=== PATIENT | male | born 1990 | race Caucasian/White ===

== ENCOUNTER 2022-07-25 15:01 | Emergency (ER) | payer MEDICAID, SELFPAY ==
[2022-07-25 15:02] VITALS: PULSE 100; RESP 18; O2SAT 100
[2022-07-25 15:03] VITALS: BP 136/50; PULSE 95; RESP 28; TEMP 35.7; O2SAT 100; BMI 22.4
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
[2022-07-25] MEDS: HYDROmorphone 1 MG/ML Syringe IV (15:13)
[2022-07-25] MEDS: Ondansetron 4 MG/2 ML Vial IV (15:14)
[2022-07-25] MEDS: 0.9% Normal Saline 1,000 ML 1000 ML IV (15:16)
[2022-07-25 15:18] VITALS: BP 140/103; PULSE 96; RESP 28; O2SAT 100
[2022-07-25 15:33] LABS: Absolute Lymphocyte Count 2.79 X10^3/uL (0.83-4.51); Basophil# 0.08 X10^3/uL; Basophil% 0.9 % (0-1); Eosinophils% 1.1 % (0-5); Hematocrit 43.3 % (40-54); Lymphocyte # 2.79 X10^3/ul (0.83-4.51); Lymphocyte % 31.7 % (19-41); Mean Corp Hgb Conc 34.6 g/dL (32-36); Mean Corpuscular Hgb 29.5 pg (27.0-32.0); Mean Corpuscular Volume 85.1 fL (80-94); Monocyte# 0.76 X10^3/uL; Monocyte% 8.6 % (0-10); NRBC Flagged by Analyzer 0 % (0-5); Neutrophil # 4.96 X10^3/uL (2.7-7.7); Neutrophil % 56.3 % (47-70); Platelet Count 190 K/mm3 (150-450); RBC Distribution Width CV 13.9 % (11.6-14.6); RBC Distribution Width SD 43.4 fl (35.1-43.9); Red Blood Count 5.09 M/mm3 (4.6-6.2); White Blood Count 8.8 K/mm3 (4.4-11.0)
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
[2022-07-25 15:36] LABS: ALB/GLOB Ratio 1.1 RATIO (0.9-2.4); AST(SGOT) 43 U/L (15-37); Alanine Aminotransfer ALT/SGPT 46 U/L (16-61); Albumin, Serum 3.6 g/dL (3.2-5.0); Alkaline Phosphatase 70 U/L (45-117); Anion Gap 11 (5-15); BUN 14 mg/dL (7-18); BUN/Creat Ratio 12.4 RATIO (10-20); Calcium,Total 8.8 mg/dL (8.5-10.1); Chloride 108 mmol/L (98-107); Creatinine, Serum 1.13 mg/dL (0.70-1.30); EST Glomerular Filtration Rate 80 mL/min (>60); Est Glom Filt Rate - Afr Amer 96 mL/min (>60); Estimated Creatinine Clearance 108.05 ml/min; Globulin 3.4 g/dL (2.2-4.2); Glucose 124 mg/dL (74-106); Lipase 92 U/L (73-393); Potassium 2.8 mmol/L (3.5-5.1); Sodium Level 141 mmol/L (136-145); Troponin-I HS < 3 pg/mL (3.0-78.0)
[2022-07-25 15:45] LABS: International Normalized Ratio 1.2; Partial Thromboplast Time 27.5 Seconds (24.1-36.2); Prothrombin Time (Protime)PT. 14.4 SECONDS (11.7-14.9)
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
[2022-07-25 16:01] VITALS: BP 128/70; PULSE 69; RESP 16; O2SAT 100
--- NOTE | 2022-07-25 16:13 | NURSING ---
CALLED [facility], ETA IS 2 HRS
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
[2022-07-25 17:34] VITALS: BP 119/73; PULSE 90; RESP 18; TEMP -12.5; TEMP 9.5; O2SAT 100
== END 2022-07-25 17:35 | disposition short-term general hospital (02) ==
PROVIDERS: Emergency Provider Emergency Medicine; Visit Provider Emergency Medicine
DX: S01.01XA Laceration without foreign body of scalp, initial encounter (principal); S51.012A Laceration without foreign body of left elbow, initial encounter; M54.9 Dorsalgia, unspecified; R06.4 Hyperventilation; M25.571 Pain in right ankle and joints of right foot; V28.49XA Other motorcycle driver injured in noncollision transport accident in traffic accident, initial encounter; F17.210 Nicotine dependence, cigarettes, uncomplicated; Z79.899 Other long term (current) drug therapy
CPT/HCPCS: 70450; 71260; 72125; 73080; 73610; 74177; 80053; 82077; 83690; 84484; 85025; 85610; 85730; 96361; 96374; 96375; 99285; Q9967; J2405

== ENCOUNTER 2025-07-01 22:10 | Emergency (ER) | payer MEDICAID, SELFPAY ==
[2025-07-01 22:11] VITALS: BP 141/78; PULSE 111; RESP 20; TEMP 37; O2SAT 100; BMI 18.6
--- OUTSIDE RECORDS SUMMARY | 2025-07-01 22:32 | XMS RPT_ITS | CCD ---
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 Final --- Dictated: 07/25/2022 10:24 pm Dictating Physician: MD TIRADO SYED TAAHIR Signed Date and Time: 07/25/2022 10:45 pm Signed by: MD TIRADO SYED TAAHIR Transcribed Date and Time: 07/25/2022 10:25 [facility] Rex Tirado S - 07/25/2022 Patient Name: [facility]BERT[id number] Diagnostic Radiology ACCESSION EXAM DATE/TIME PROCEDURE ORDERING PROVIDER [id number] 07/25/2022 21:57 EDT CR Tibia/Fibula 2 Views [id number] -TURCIOS, Right MELITON CPT code 20938 Reason For Exam (CR Tibia/Fibula 2 Views Right) PAIN S/P INTERMEDIATE Report EXAMINATION: CR Ankle 3+ Views Bilateral, CR Knee 3 Views Right, CR Knee 3 Views Left, CR Foot Complete 3+ Views Bilateral, CR Tibia/Fibula 2 Views Right HISTORY: s/p INTERMEDIATE, both ttp and edematous. TECHNIQUE: CR Ankle 3+ Views Bilateral, CR Knee 3 Views Right, CR Knee 3 Views Left, CR Foot Complete 3+ Views Bilateral, CR Tibia/Fibula 2 Views Right COMPARISON: None available RESULT: Bilateral knees: No acute fracture or dislocation. Joint space are preserved. No effusions. No radiopaque foreign body. No soft tissue gas. Right tibia/fibula: No acute fractures or dislocations. No radiopaque foreign body. No soft tissue gas. Right ankle: Tiny ossific density displaced approximately 6 mm distal to the distal fibular tip suggesting a small avulsion fracture. There is surrounding soft tissue swelling. No other additional fractures. No dislocations. Ankle mortise is preserved. No radiopaque foreign body or soft tissue gas. Left ankle: No acute fracture or dislocation. Ankle mortise is preserved. No radiopaque foreign body or soft tissue gas. Right foot: Acute comminuted fractures of the 1st distal phalanx with surrounding swelling. Possible intra-articular fracture of the 3rd distal phalanx given lucency at the lateral aspect. No additional findings suspicious for other fractures. No dislocations. No radiopaque foreign body or soft tissue gas. Left foot: Minimally displaced oblique intra-articular fracture of the 5th digit proximal phalanx with surrounding soft tissue swelling. Possible cortical irregularity suggesting an additional nondisplaced acute oblique fracture of the 4th digit proximal phalanx. Otherwise no additional fractures. No radiopaque foreign body or soft tissue gas. IMPRESSION: Diagnostic Radiology Report Knees: No acute osseous abnormality Right tib-fib: No acute osseous abnormality Right ankle: Suggestion of a small avulsion fracture of the distal fibular tip. Correlate with point tenderness. No other acute fracture or dislocation. Left ankle: No acute osseous abnormality. Right foot: Acute comminuted fracture of the 1st distal phalanx. Additional possible intra-articular fracture of the 3rd distal phalanx. Correlate with point tenderness. Left foot: Minimally displaced oblique intra-articular fracture of the 5th digit proximal phalanx. Possible additional fracture of the 4th digit proximal phalanx. Correlate with point tenderness. Report Dictated on --- Final --- Dictated: 07/25/2022 10:24 pm Dictating Physician: MD TIRADO SYED TAAHIR Signed Date and Time: 07/25/2022 10:45 pm Signed by: MD TIRADO SYED TAAHIR Transcribed Date and Time: 07/25/2022 10:25 [facility] Work Phone: [facility] Work Phone: ED NOTEon 04-10-2021 ED NOTE HNO ID: [id number] Author: Juana Wakefield RN Service: Nursing Author Type: Registered Nurse Type: ED Notes Filed: 04/09/2021 10:04 PM Note Text: Pt is being discharged home in stable condition, with friend. Breathing even and unlabored, color good, skin warm and dry. Pt reports that his pain is completely gone at this time. Discharge instructions, prescriptions and follow up reviewed, pt verbalized understanding, with no further questions for this nurse. Pt was provided with a copy of discharge instructions and the ordered prescriptions. IV removed, no bleeding noted. Pt was encouraged to return to ED as needed, for persistent or worsening symptoms or any new concerns, pt verbalized understanding. Pt ambulated off ED in no distress, with friend. [facility] ALLIED HEALTHon 04-09-2021 ALLIED HEALTH HNO ID: [id number] Author: JAZIEL Sierra Service: Radiology Author Type: Clinical Buffet Manager Type: Allied Health Filed: 04/09/2021 8:26 PM Note Text: Radiology Service Progress Note PATIENT NAME: Eriberto Sevilla DATE OF SERVICE: April 09, 2021 TIME: 8:26 PM PATIENT IDENTITY VERIFICATION COMPLETED USING TWO (2) IDENTIFIERS: Name and Date of confirmed by patient verbally and Name and Date of confirmed by identification band. FALL SCREENING: Has the patient had 2 falls in the last year or 1 fall with injury or currently using an Ambulatory Assistive Device (Walker, Cane, Wheelchair, Crutches, etc.)? Emergency Room Patient: Screened in ED PATIENT GENDER DATA: Male PATIENT RELEVANT IMPLANT DATA REVIEWED: Not Applicable RADIOLOGY DEPARTMENT: Ultrasound PERIPHERAL IV DATA: Not applicable SIGNED BY: JAZIEL Sierra April 09, 2021 8:26 PM [facility] Blood Cultureon 04-09-2021 Bacteria identified Cx Nom (Bld) Culture Result - No growth 5 days [facility] Comment on above: Performed By: #### B LCUL #### [facility] [employer] [address] [place], [place] [address] Performed By: #### U RCUL #### [facility] [employer] [address] [place], [place] [address] CBC and Differentialon 04-09 Abs Baso 0.08 k/uL Normal <0.11 [facility] Comment on above: Performed By: #### C MP, CBCDIF #### [facility] [address] [place] [address] Abs Gilchrist 1.13 k/uL High <0.87 [facility] Comment on above: Performed By: #### C MP, CBCDIF #### [facility] [address] [address] Abs Neut 6.90 k/uL Normal 1.45-7.50 [facility] Comment on above: Performed By: #### C MP, CBCDIF #### [facility] [address] [place] [address] Absolute nRBC <0.01 Normal <0.01 [facility] Comment on above: Performed By: #### C MP, CBCDIF #### [facility] [address] [place] [address] Basophils/100 WBC (Bld) 0.8 % Normal [facility] Comment on above: Performed By: #### C MP, CBCDIF #### [facility] [address] [place] [address] DTYPE Auto Diff Normal [facility] Comment on above: Performed By: #### C MP, CBCDIF #### [facility] [address] [place] [address] Eosinophils (Bld) [#/Vol] 0.13 10*3/uL Normal <0.46 [facility] Comment on above: Performed By: #### C MP, CBCDIF #### [facility] [address] [place] [address] Eosinophils/100 WBC (Bld) 1.3 % Normal [facility] Comment on above: Performed By: #### C MP, CBCDIF #### [facility] [address] [place] [address] Erythrocyte distribution width (RBC) [Ratio] 12.8 % Normal 11.5-15.0 [facility] Comment on above: Performed By: #### C MP, CBCDIF #### [facility] [address] [place] [address] Hematocrit (Bld) [Volume fraction] 45.2 % Normal 39.0-51.0 [facility] Comment on above: Performed By: #### C MP, CBCDIF #### [facility] [address] [address] Hemoglobin (Bld) [Mass/Vol] 15.1 g/dL Normal 13.0-17.0 [facility] Comment on above: Performed By: #### C MP, CBCDIF #### [facility] [address] [phone] Lymphocytes (Bld) [#/Vol] 1.62 10*3/uL Normal 1.00-4.00 [facility] Comment on above: Performed By: #### C MP, CBCDIF #### [facility] [address] [address] Lymphocytes/100 WBC (Bld) 16.4 % Normal [facility] Comment on above: Performed By: #### C MP, CBCDIF #### [facility] [address] [address] MCH 30.1 pG Normal 26.0-34.0 [facility] Comment on above: Performed By: #### C MP, CBCDIF #### [facility] [address] [place] [address] MCHC (RBC) [Mass/Vol] 33.4 g/dL Normal 30.5-36.0 [facility] Comment on above: Performed By: #### C MP, CBCDIF #### [facility] [address] [place], [place] [phone] MCV (RBC) [Entitic vol] 90.0 fL Normal 80.0-100.0 [facility] Comment on above: Performed By: #### C MP, CBCDIF #### [facility] [address] [place], [place] [phone] Monocytes/100 WBC (Bld) 11.5 % Normal [facility] Comment on above: Performed By: #### C MP, CBCDIF #### [facility] [address] [place], [place] [phone] Neutrophils/100 WBC (Bld) 70.0 % Normal [facility] Comment on above: Performed By: #### C MP, CBCDIF #### [facility] [address] [place], [place] [phone] NRBCs 0.0 /100 WBC Normal 0 [facility] Comment on above: Performed By: #### C MP, CBCDIF #### [facility] [address] [place], [place] [phone] Platelet mean volume (Bld) [Entitic vol] 11.9 fL Normal 9.0-12.7 [facility] Comment on above: Performed By: #### C MP, CBCDIF #### [facility] [address] [address] Platelets (Bld) [#/Vol] 196 10*3/uL Normal 150-400 [facility] Comment on above: Performed By: #### C MP, CBCDIF #### [facility] [address] [place] [address] RBC (Bld) [#/Vol] 5.02 10*6/uL Normal 4.20-6.00 [facility] Comment on above: Performed By: #### C MP, CBCDIF #### [facility] [address] [place], [place] [phone] WBC (Bld) [#/Vol] 9.86 10*3/uL Normal 3.70-11.00 [facility] Comment on above: Performed By: #### C MP, CBCDIF #### [facility] [address] [place] [address] Comp Metabolic Panelon 04-09 Albumin [Mass/Vol] 4.2 g/dL Normal 3.9-4.9 [facility] Comment on above: Performed By: #### C MP, CBCDIF #### [facility] [address] [place], [place] [phone] ALP [Catalytic activity/Vol] 78 U/L Normal 38-113 [facility] Comment on above: Performed By: #### C MP, CBCDIF #### [facility] [address] [place], [place] [phone] ALT [Catalytic activity/Vol] 28 U/L Normal 10-54 [facility] Comment on above: Performed By: #### C MP, CBCDIF #### [facility] [address] [place], [place] [phone] Anion gap [Moles/Vol] 7 mmol/L Low 9-18 [facility] Comment on above: Performed By: #### C MP, CBCDIF #### [facility] [address] [address] AST [Catalytic activity/Vol] 24 U/L Normal 14-40 [facility] Comment on above: Performed By: #### C MP, CBCDIF #### [facility] [address] [address] Bilirubin [Mass/Vol] 0.3 mg/dL Normal 0.2-1.3 [facility] Comment on above: Performed By: #### C QUOC, CBCDIF #### [facility] [address] [address] Calcium [Mass/Vol] 8.8 mg/dL Normal 8.5-10.2 [facility] Comment on above: Performed By: #### C QUOC, CBCDIF #### [facility] [address] [address] Chloride [Moles/Vol] 99 mmol/L Normal 97-105 [facility] Comment on above: Performed By: #### C QUOC, CBCDIF #### [facility] [address] [address] CO2 [Moles/Vol] 31 mmol/L High 22-30 [facility] Comment on above: Performed By: #### C QUOC, CBCDIF #### [facility] [address] [address] Creatinine [Mass/Vol] 1.04 mg/dL Normal 0.73-1.22 [facility] Comment on above: Performed By: #### C QUOC, CBCDIF #### [facility] [address] [address] eGFR- Amer. >60 Normal [facility] Comment on above: Performed By: #### C QUOC, CBCDIF #### [facility] [address] [place] [address] eGFR-All Other Races >60 Normal [facility] Comment on above: Result Comment: eGFR (Estimated GFR) Units of measure: mL/min/1.73 meters squared eGFR is derived from the reexpressed MDRD Study equation using the following parameters: serum creatinine, age, gender and race. The creatinine assay has been calibrated to be traceable to IDMS. An eGFR <60 mL/min/1.73m2 for >3 months is consistent with chronic kidney disease. Refer to KDOQI guidelines for clinical interpretation. In patients with unstable renal function, e.g. those with acute kidney injury, the eGFR may not accurately reflect actual GFR. Performed By: #### C QUOC, CBCDIF #### [facility] [address] [place], [place] [phone] Glucose [Mass/Vol] 89 mg/dL Normal 74-99 [facility] Comment on above: Result Comment: The [place] Diabetes Association (ADA) provides guidance for cutoff values for fasting glucose and random glucose. The ADA defines fasting as no caloric intake for at least 8 hours. Fasting plasma glucose results between 100 to 125 mg/dL indicate increased risk for diabetes (prediabetes). Fasting plasma glucose results greater than or equal to 126 mg/dL meet the criteria for diagnosis of diabetes. In the absence of unequivocal hyperglycemia, results should be confirmed by repeat testing. In a patient with classic symptoms of hyperglycemia or hyperglycemic crisis, random plasma glucose results greater than or equal to 200 mg/dL meet the criteria for diagnosis of diabetes. Reference: Standards of Medical Care in Diabetes 2016, [place] [employer]. Diabetes Care. 2016.39(Suppl 1). Performed By: #### C QUOC, CBCDIF #### [facility] [address] [place], [place] [phone] Potassium [Moles/Vol] 3.9 mmol/L Normal 3.7-5.1 [facility] Comment on above: Performed By: #### C QUOC, CBCDIF #### [facility] [address] [place], [place] [phone] Protein [Mass/Vol] 7.0 g/dL Normal 6.3-8.0 [facility] Comment on above: Performed By: #### C QUOC, CBCDIF #### [facility] [address] [place], [place] [phone] Sodium [Moles/Vol] 137 mmol/L Normal 136-144 [facility] Comment on above: Performed By: #### C QUOC, CBCDIF #### [facility] [address] [place] [address] Urea nitrogen [Mass/Vol] 11 mg/dL Normal 9-24 [facility] Comment on above: Performed By: #### C , CBCDIF #### [facility] [address] [facility] [phone] ED NOTEon 04-09-2021 ED NOTE HNO ID: [id number] Author: Juana Wakefield RN Service: Nursing Author Type: Registered Nurse Type: ED Notes Filed: 04/09/2021 10:04 PM Note Text: Redness area on the right lower leg marked with a marker. Normal [facility] ED NOTE HNO ID: [id number] Author: Juana Wakefield RN Service: Nursing Author Type: Registered Nurse Type: ED Notes Filed: 04/09/2021 7:47 PM Note Text: Pt aware that urine sample is needed, urinal at bedside. [facility] ED NOTE HNO ID: [id number] Author: Peyton Jasso RN Service: ? Author Type: Registered Nurse Type: ED Notes Filed: 04/09/2021 6:29 PM Note Text: Patient presents to the ED with a wound on his right posterior calf. Patient got a tattoo one week ago. [facility] ED PROV NOTEon 04-09-2021 ED PROV NOTE HNO ID: [id number] Author: Aure Nicole DO Service: Emergency Medicine Author Type: Physician Type: ED Provider Notes Filed: 04/09/2021 8:47 PM Note Text: ED Provider Note Patient Name: Eriberto Sevilla SERVICE DATE: 04/09/21 History No chief complaint on file. Eriberto Sevilla is a 30yo M that comes in for possible R leg infection. He got a tattoo on his R calf 1 week ago. He states about 3 to 4 days ago he noticed a small spot to the right medial calf. He states he tried to pick it and open it but did not really get any drainage. He did not know he had a fever until today. Temp in triage is 100.4. He does complain of some pain to the right medial calf. No past medical history on file. No past surgical history on file. No family history on file. Social History Tobacco Use - Smoking status: Not on file Substance and Sexual Activity - Alcohol use: Not on file - Drug use: Not on file - Sexual activity: Not on file ALLERGIES Not on File Review of Systems Constitutional: Positive for fever. Negative for chills. HENT: Negative for sore throat and trouble swallowing. Eyes: Negative for visual disturbance. Respiratory: Negative for cough and shortness of breath. Cardiovascular: Negative for chest pain and palpitations. Gastrointestinal: Negative for abdominal pain, diarrhea, nausea and vomiting. Endocrine: Negative for polyuria. Genitourinary: Negative for dysuria and flank pain. Musculoskeletal: Negative for back pain and neck pain. R calf pain Skin: Negative for rash. Allergic/Immunologic: Negative for immunocompromised state. Neurological: Negative for dizziness and headaches. Hematological: Does not bruise/bleed easily. Psychiatric/Behavioral: Negative for confusion and sleep disturbance. Physical Exam There were no vitals taken for this visit. Physical Exam Vitals and nursing note reviewed. Constitutional: General: He is not in acute distress. Appearance: Normal appearance. He is well-developed. He is not ill-appearing or diaphoretic. HENT: Head: Normocephalic and atraumatic. Nose: Nose normal. Mouth/Throat: Dentition: Dental caries present. Pharynx: No oropharyngeal exudate. Comments: Multiple dental caries Eyes: General: No scleral icterus. Conjunctiva/sclera: Conjunctivae normal. Pupils: Pupils are equal, round, and reactive to light. Neck: Vascular: No JVD. Trachea: No tracheal deviation. Cardiovascular: Rate and Rhythm: Normal rate and regular rhythm. Heart sounds: Normal heart sounds. No murmur heard. No friction rub. No gallop. Pulmonary: Effort: Pulmonary effort is normal. No respiratory distress. Breath sounds: Normal breath sounds. No stridor. No wheezing or rales. Abdominal: General: Bowel sounds are normal. There is no distension. Palpations: Abdomen is soft. There is no mass. Tenderness: There is no abdominal tenderness. There is no guarding or rebound. Hernia: No hernia is present. Musculoskeletal: General: No deformity. Normal range of motion. Cervical back: Neck supple. Skin: General: Skin is warm and dry. Capillary Refill: Capillary refill takes less than 2 seconds. Findings: No erythema. Comments: Small 0.5cm annular scab to the right medial calf. There is surrounding erythema and warmth to the touch. There is induration noted. No fluctuance. Mild pain on palpation to this area. The actual tattoo itself does not appear to have cellulitis associated with it. Neurological: Mental Status: He is alert and oriented to person, place, and time. Psychiatric: Behavior: Behavior normal. Thought Content: Thought content normal. Judgment: Judgment normal. Diagnostic Testing ED Labs Ordered and Reviewed - No data to display Procedures ED Course / Clinical Impression ED Course as of Apr 09 2047 Aure Nicole's Documentation Mon Apr 09, 2021 193 CBC and CMP are unremarkable. Lactate is normal. 2010 UA is negative Clinical Impressions as of Apr 09 2047 Cellulitis of right leg Crusted serum on skin MDM / Disposition / Plan Course: Vital signs were reviewed. Triage records were reviewed. Medical records were reviewed. Nursing notes were reviewed and incorporated. Medical Decision Making: Eriberto Sevilla is a 30-year-old male that comes in for possible right leg infection. He got a tattoo to the right medial calf 1 week ago. He states 3 or 4 days ago he had a scab to the right medial calf that he picked. He did not really get drainage out. He states it is fairly painful. On exam, he is in no distress. He is febrile at 100.4. Heart rate is 125. Blood pressure stable. Pulse ox is 99% on room air. Lungs are clear. Abdomen is benign. He does have a scab to the right medial calf with surrounding cellulitis. Patient's labs are unremarkable. Ultrasound is pending. His work-up is unremarkable clear normal lactate and normal white count. Ultrasou (more content not included)... Normal [facility] US DVT LOWER RTon 04-09-2021 US DVT LOWER RT * * *Final Report* * * DATE OF EXAM: Apr 09 2021 8:24PM AZU 1007 - US DVT LOWER RT / PROCEDURE REASON: Leg swelling * * * * Physician Interpretation * * * * EXAMINATION: RIGHT LOWER EXTREMITY DEEP VENOUS ULTRASOUND WITH DOPPLER IMAGING CLINICAL HISTORY: Lower extremity swelling TECHNIQUE: Grayscale with compression maneuvers, color Doppler and spectral Doppler at rest and with augmentation of the right distal external iliac, common femoral, femoral and popliteal veins was performed. Grayscale with compression maneuvers of the peroneal and posterior tibial veins was performed. The right great and small saphenous veins were also imaged in grayscale with compression maneuvers at their insertion to the deep system. The contralateral common femoral vein was imaged for comparison. Images were obtained and stored in a permanent archive. MQ: [id number] COMPARISON: None RESULT: RIGHT LOWER EXTREMITY PROXIMAL DEEP VEINS Distal External Iliac and Common Femoral Veins: Compression: Normal Doppler: Normal, spontaneous respirophasic flow. Normal response to augmentation. Femoral vein: Compression: Normal Doppler: Normal, spontaneous flow. Normal response to augmentation. Popliteal vein: Compression: Normal Doppler: Normal, spontaneous flow. Normal response to augmentation. CALF DEEP VEINS Peroneal veins: Normal compression. Posterior tibial veins: Normal compression. Gastrocnemius and Soleal veins: Not imaged. SUPERFICIAL VEINS Great saphenous: Patent and compressible at insertion into common femoral vein; not otherwise assessed. Small Saphenous: Patent and compressible in the proximal calf, not otherwise assessed. LEFT LOWER EXTREMITY (FOR COMPARISON) Common Femoral Vein: Compression: Normal Doppler: Normal, spontaneous respirophasic flow. Normal response to augmentation. IMPRESSION: Negative study for proximal DVT in the right lower extremity. Negative study for calf DVT in the right lower extremity. Negative study for superficial thrombophlebitis in the imaged segments of the right lower extremity. Leasing Machine Tender: WHITNEY Transcribe Date/Time: Apr 09 2021 8:29P Dictated by : MARCELLUS HIGHTOWER MD This examination was interpreted and the report reviewed and electronically signed by: MARCELLUS HIGHTOWER MD on Apr 09 2021 8:36PM EST [id number] Normal [facility] Urinalysison 04-09-2021 Bilirubin, Urine Negative Normal Negative [facility] Comment on above: Performed By: #### U A #### [facility] [address] [place] [address] Clarity (U) Clear Normal Clear [facility] Comment on above: Performed By: #### U A #### [facility] [address] [place], [place] [id number] Color (U) Yellow Normal Yellow [facility] Comment on above: Performed By: #### U A #### [facility] [address] [place] [address] Glucose Ql (U) Negative Normal Negative [facility] Comment on above: Performed By: #### U A #### [facility] [address] [place], [place] [id number] Hemoglobin/Blood,Ur Negative Normal Negative [facility] Comment on above: Performed By: #### U A #### [facility] [address] [address] Ketones Ql (U) Negative Normal Negative [facility] Comment on above: Performed By: #### U A #### [facility] [address] [address] Leukest Negative Normal Negative [facility] Comment on above: Performed By: #### U A #### [facility] [address] [address] Nitrite Ql (U) Negative Normal Negative [facility] Comment on above: Performed By: #### U A #### [facility] [address] [place] [address] pH (U) 7.5 [pH] Normal 5.0-8.0 [facility] Comment on above: Performed By: #### U A #### [facility] [address] [place] [address] Protein, Urine Negative Normal Negative [facility] Comment on above: Performed By: #### U A #### [facility] [address] [place] [address] Specific [place], Ur 1.010 Normal 1.005-1.030 [facility] Comment on above: Performed By: #### U A #### [facility] [address] [place] [address] Urobilinogen Qn (U) 4.0 {Landy'U}/dL High 0.2-1.0 [facility] Comment on above: Performed By: #### U A #### [facility] [address] [place] [address] Urine Cultureon 04-09-2021 Bacteria identified Cx Nom (U) Culture Result - <10,000 CFU/ml Normal urogenital iveth Normal [facility] Comment on above: Performed By: #### U RCUL #### [facility] [address] [place] [address] Vital Signs Date Time Vital Sign Value Performing Clinician Facility 02-24-2025 19:44-0400 Body temperature 97.9 [degF] Juan Pablo Roblero PA-C Work Phone: [facility] 02-24-2025 19:44-0400 Body weight 74 kg Juan Pablo Clutter PA-C Work Phone: [facility] 02-24-2025 19:44-0400 Diastolic blood pressure 73 mm[Hg] Juan Pablo Clutter PA-C Work Phone: [facility] 02-24-2025 19:44-0400 Heart rate 101 /min Juan Pablo Clutter PA-C Work Phone: [facility] 02-24-2025 19:44-0400 Respiratory rate 20 /min Juan Pablo Clutter PA-C Work Phone: [facility] 02-24-2025 19:44-0400 SaO2% (BldA) [Mass fraction] 96 % Juan Pablo Clutter PA-C Work Phone: [facility] 02-24-2025 19:44-0400 Systolic blood pressure 113 mm[Hg] Juan Pablo Clutter PA-C Work Phone: [facility] 03-08-2024 09:18-0400 Body mass index (BMI) [Ratio] 23.12 kg/m2 Karely Thurman [employer] Work Phone: [facility] 03-08-2024 09:18-0400 Body temperature 97.59 [degF] Karely Thurman [employer] Work Phone: [facility] 03-08-2024 09:18-0400 Body weight 83.92 kg Karely Thurman [employer] Work Phone: [facility] 03-08-2024 09:18-0400 Diastolic blood pressure 74 mm[Hg] Karely Thurman [employer] Work Phone: [facility] 03-08-2024 09:18-0400 Heart rate 79 /min Karely Thurman [employer] Work Phone: [facility] 03-08-2024 09:18-0400 SaO2% (BldA) [Mass fraction] 97 % Karely Thurman [employer] Work Phone: [facility] 03-08-2024 09:18-0400 Systolic blood pressure 122 mm[Hg] Karely Thurman [employer] Work Phone: [facility] 07-26-2022 15:15-0400 Body temperature 98.49 [degF] Gavin Stallings DO Work Phone: [facility] 07-26-2022 15:15-0400 Diastolic blood pressure 62 mm[Hg] Gavin Stallings DO Work Phone: [facility] 07-26-2022 15:15-0400 Heart rate 86 /min Gavin Stallings DO Work Phone: [facility] 07-26-2022 15:15-0400 Respiratory rate 14 /min Gavin Stallings DO Work Phone: [facility] 07-26-2022 15:15-0400 SaO2% (BldA) [Mass fraction] 97 % Gavin Stallings DO Work Phone: [facility] 07-26-2022 15:15-0400 Systolic blood pressure 116 mm[Hg] Gavin Stallings DO Work Phone: [facility] 07-25-2022 19:02-0400 Body height 190.5 cm Gavin Stallings DO Work Phone: [facility] 07-25-2022 19:02-0400 Body mass index (BMI) [Ratio] 22.5 kg/m2 Gavin Stallings DO Work Phone: [facility] 07-25-2022 19:02-0400 Body weight 81.65 kg Gavin Stallings DO Work Phone: [facility] 07-25-2022 17:34-0400 Body temperature 9.5 [degF] [facility] Work Phone: 07-25-2022 17:34-0400 Diastolic blood pressure 73 mm[Hg] [facility] Work Phone: 07-25-2022 17:34-0400 Heart rate 90 /min [facility] Work Phone: 07-25-2022 17:34-0400 Respiratory rate 18 /min [facility] Work Phone: 07-25-2022 17:34-0400 SaO2% (BldA) [Mass fraction] 100 % [facility] Work Phone: 07-25-2022 17:34-0400 Systolic blood pressure 119 mm[Hg] [facility] Work Phone: 07-25-2022 16:01-0400 Inhaled oxygen flow rate 3 L/min [facility] Work Phone: 07-25-2022 15:03-0400 Body height 190.5 cm [facility] Work Phone: 07-25-2022 15:03-0400 Body mass index (BMI) [Ratio] 22.4 kg/m2 [facility] Work Phone: 07-25-2022 15:03-0400 Body weight 81.4 kg [facility] Work Phone: Encounters Encounter Date Encounter Type Care Provider Facility Start: 02-25-2025 End: 02-25-2025 Follow-up encounter Aida Hernandez APRN.CNP Work Phone: [facility] Start: 02-24-2025 End: 02-24-2025 Office outpatient new 30 minutes Juan Pablo Roblero PA-C Work Phone: [facility] Comment on above: Screening for STD (s exually transmitted disease) (Primary Dx); Urinary frequency; Exposure to trichomonas Start: 02-24-2025 End: 02-24-2025 ambulatory JUAN PABLO ROBLERO Facility:[facility] Start: 03-08-2024 End: 03-08-2024 Office outpatient visit 15 minutes Karely Thurman NP Work Phone: [facility] Comment on above: Dental infection (Pr imary Dx) Start: 03-08-2024 End: 03-08-2024 ambulatory KARELY THURMAN [facility] Start: 07-25-2022 End: 07-26-2022 ambulatory [facility] Start: 07-25-2022 End: 07-25-2022 Emergency department patient visit Maninder Flores Facility:[facility] Start: 07-25-2022 End: 07-26-2022 Emergency department patient visit [facility] Comment on above: Abrasion of left elb ow, initial encounter (Primary Dx); Compression fracture of L2 vertebra with routine healing Procedures Date Procedure Procedure Detail Performing Clinician Start: 07-26-2022 Basic metabolic pane l calcium total Klaudia Stockton MD Work Phone: Start: 07-25-2022 End: 07-25-2022 Radex spine lumbosacral 2/3 views Rosalind Salcedo MD Work Phone: Start: 07-25-2022 XR HAND STANDARD BILATERAL Meliton Turcios MD Work Phone: Start: 07-25-2022 Assay of ethanol Juan Hoover MD Work Phone: Start: 07-25-2022 Comprehensive metabo lic panel Juan Hoover MD Work Phone: Start: 07-25-2022 Drug tst prsmv instr mnt chem analyzers pr date Juan Hoover MD Work Phone: Start: 07-25-2022 Urnls dip stick/tabl et rgnt auto w/o microscopy Juan Hoover MD Work Phone: Start: 07-25-2022 Radiography of ankle Start: 07-25-2022 Plain x-ray of elbow Start: 07-25-2022 CT cervical spine wi thout contrast Start: 07-25-2022 CT of chest and abdomen Start: 07-25-2022 CT of head without contrast Plan of Treatment Date Care Activity Detail Author Start: 2049 RSV Immunization age d 60 or older (1 - 1-dose 60+ series) RSV Immunization aged 60 or older (1 - 1-dose 60+ series) [facility] Start: 12-26-2039 Zoster Vaccines (1 o f 2) Zoster Vaccines (1 of 2) [facility] Start: 07-25-2032 DTaP/Tdap/Td vaccine (2 - Td or Tdap) DTaP/Tdap/Td vaccine (2 - Td or Tdap) [facility] Start: 07-25-2032 DTaP/Tdap/Td Vaccine s (3 - Td or Tdap) DTaP/Tdap/Td Vaccines (3 - Td or Tdap) [facility] Start: 07-25-2032 Urine microalbumin profile DTaP,Tdap,Td Vaccine (3 - Td or Tdap) [facility] Start: 05-30-2025 Influenza vaccination Influenz a Vaccine (Season Ended) [facility] Start: 02-24-2025 End: 05-26-2025 TRICHOMONAS VAGINALIS NAAT TRICHOMONAS VAGINALIS NAAT Lab Routine Urinary frequency Expected: 02/24/2025, Expires: 05/26/2025 [facility] Comment on above: Expected: 02/24/2025 , Expires: 05/26/2025 Start: 2024 Lipid panel Lipid Screening [facility] Start: 05-30-2024 Covid-19 Vaccine ( season) Covid-19 Vaccine ( season) [facility] Start: 05-30-2024 Influenza vaccination Influenz a Vaccine (Season Ended) [facility] Start: 05-30-2023 COVID-19 Vaccine ( season) COVID-19 Vaccine ( season) [facility] Start: 04-29-2022 Influenza vaccination Flu vaccine (# 1) [facility] Start: 2008 Hepatitis A Vaccines (1 of 2 - Risk 2-dose series) Hepatitis A Vaccines (1 of 2 - Risk 2-dose series) [facility] Start: 2008 Hepatitis B Vaccine (1 of 3 - 19+ 3-dose series) Hepatitis B Vaccine (1 of 3 - 19+ 3-dose series) [facility] Start: 2008 Hepatitis B Vaccines (1 of 3 - 19+ 3-dose series) Hepatitis B Vaccines (1 of 3 - 19+ 3-dose series) [facility] Start: 2008 Pneumococcal vaccination Pneumococcal Vaccine (1 of 2 - PCV) [facility] Start: 12-26-2007 Anxiety Screening Anxiety Screening [facility] Start: 12-26-2007 Depression Screening Depression Scre ening [facility] Start: 12-26-2007 Hepatitis C screening Hepatitis C Sc reening [facility] Start: 12-26-2007 HIV screening HIV Screening [facility] Start: 2002 Varicella vaccination Varicell a Vaccines (1 of 2 - 13+ 2-dose series) [facility] Start: 2001 Depression Screening Depression Scre ening [facility] Start: 1990 MMR Vaccines (1 of 1 - Standard series) MMR Vaccines (1 of 1 - Standard series) [facility] Start: 06-27-1990 COVID-19 Vaccine (#1) COVID-19 Vacci ne (#1) [facility] Start: 1989 HIV screening HIV Screening [facility] End: 07-28-2022 Basic Metabolic Panel w/ Reflex to MG Basic Metabolic Panel w/ Reflex to MG Lab Routine Daily for 3 Days starting 07/26/2022 until 07/28/2022 [facility] Work Phone: Comment on above: Daily for 3 Days sta rting 07/26/2022 until 07/28/2022 Bilirubin measuremen t, urine [facility] Work Phone: End: 07-28-2022 CBC W Auto Differential panel - Blood CBC with Auto Differential Lab Routine Daily for 3 Days starting 07/26/2022 until 07/28/2022 [facility] Work Phone: Comment on above: Daily for 3 Days sta rting 07/26/2022 until 07/28/2022 Chlamydia trachomatis+Neisseria gonorrhoeae DNA [Presence] in Unspecified specimen by DANYEL with probe detection GONORRHEA/CHLAMYDIA NAAT Lab Routine Urinary frequency Ordered: 02/24/2025 [facility] Work Phone: Comment on above: Ordered: 02/24/2025 Hemoglobin [Presence ] in Urine [facility] Work Phone: Measurement of keton es in urine using dipstick [facility] Work Phone: Microscopic urinalysis [facility] Work Phone: Oxygen therapy [[facility] Data Set] Initiate Oxygen Therapy Protocol Respiratory Care Routine As Needed until discontinued starting 07/25/2022 [facility] Work Phone: Comment on above: As Needed until disc ontinued starting 07/25/2022 Patient referral [facility] Work Phone: pH of Urine [facility] Work Phone: End: 07-26-2022 BATTERY CONTAINER TESTER cognitive linguistic evaluation and treatment BATTERY CONTAINER TESTER cognitive linguistic evaluation and treatment BATTERY CONTAINER TESTER Routine One Time for 1 Occurrences starting 07/26/2022 until 07/26/2022 [facility] Work Phone: Comment on above: One Time for 1 Occur rences starting 07/26/2022 until 07/26/2022 Specific gravity of Urine [facility] Work Phone: Urinalysis, blood, qualitative [facility] Work Phone: Urine dipstick for glucose [facility] Work Phone: Urine dipstick for leukocyte esterase [facility] Work Phone: Urine dipstick for nitrite [facility] Work Phone: Urine dipstick for protein [facility] Work Phone: Urine examination [facility] Work Phone: Urine microscopy: epithelial cells [facility] Work Phone: Urine Microscopy: wh ite cells [facility] Work Phone: Urobilinogen [Presen ce] in Urine [facility] Work Phone: Immunizations Immunization Date Immunization Notes Care Provider Anselmo braxton 07-25-2022 tetanus toxoid, reduced diphtheria toxoid, and acellular pertussis vaccine, adsorbed Gavin Stallings DO Work Phone: [facility] Work Phone: 01-21-2013 tetanus toxoid, reduced diphtheria toxoid, and acellular pertussis vaccine, adsorbed Karely Thurman NP Work Phone: [facility] NEGATED: Highlighted row has not occurred!07-25-2022 tetanus and diphtheria toxoids, adsorbed, preservative free, for adult use (5 Lf of tetanus toxoid and 2 Lf of diphtheria toxoid) Gavin Stallings DO Work Phone: [facility] Comment on above: Deferred: - order ch anged Payers Date Payer Category Payer Medicaid [id number] 2022 Medicaid [id number] 66 [id number] 2022 Self-pay [id number] 1990 Unknown [id number] Unknown Unknown [id number] Social History Date Type Detail Facility Start: 04-27-2016 End: 07-25-2022 Tobacco smoking status NHIS Unknown if ever smoked [facility] Work Phone: Start: 1990 Sex Assigned At Male [facility] Work Phone: Start: 07-26-2022 Alcohol intake Current drinke r of alcohol (finding) [facility] Work Phone: Start: 07-25-2022 History SDOH Alcohol Frequency 1 [facility] Work Phone: Start: 07-25-2022 History SDOH Alcohol Std Drinks 0 [facility] Work Phone: Start: 04-27-2016 Alcohol Comment occ [facility] Work Phone: Start: 1990 Sex Assigned At Not on file [facility] Work Phone: Start: 07-15-2022 End: 07-25-2022 Exposure to SARS-CoV-2 (event) Not sure [facility] Start: 04-09-2021 End: 02-24-2025 Gender identity Not on file [facility] Start: 02-24-2025 Tobacco smoking stat us NHIS Smokes tobacco daily [facility] History of tobacco use Cigarette Smoker C [facility] Start: 02-24-2025 Tobacco use and exposure Smokeless tobacco non-user [facility] Start: 04-09-2021 End: 02-24-2025 History of Social function [facility] National Score (1-10 0), lower number is lower risk Not on file [facility] Clinical Notes 04-09-2021 to 02-25-2025 Telephone Encounter - Irene Chappell LPN - 02/25/2025 10:48 AM EDTTelephone Encounter - Irene Chappell LPN - 02/25/2025 10:48 AM EDTTelephone Encounter - Irene Chappell LPN - 02/25/2025 10:48 AM EDT Note Date & Type Note Facility 02-25-2025 Telephone encounter Note Pt made aware of all negative tests. Irene Chappell LPN [facility] 02-25-2025 Telephone encounter Note ----- Message from Aida Hernandez APRN.CNP sent at 02/25/2025 8:57 AM EDT ----- Please advise patient the trichomonas and gonorrhea/chlamydia tests were negative. [facility] 02-25-2025 Miscellaneous Notes Pt made aware of all negative tests. Irene Chappell LPN ----- Message from Aida Hernandez APRN.INTERNATIONAL BANKER sent at 02/25/2025 8:57 AM EDT ----- Please advise patient the trichomonas and gonorrhea/chlamydia tests were negative. documented in this encounter [facility] 02-24-2025 Note HNO ID: [id number] Author: JUAN PABLO ROBLERO PA-C Service: ? Author Type: Physician [employer] Founder Type: Progress Notes Filed: 02/24/2025 20:10 Note Text: This note was created using [employer]. Subjective Eriberto Sevilla is a 34 year old male. Patient is a 34-year-old male who complains of testicular pain that he has been experiencing for the past day. Patient reports no dysuria, hematuria, urethral discharge, rash or lesions to the skin of his genitalia. Patient explains that his partner did test positive for trichomonas yesterday. Review of Systems Genitourinary: Positive for testicular pain. Exposure to Trichomonas All other systems reviewed and are negative. Objective BP 113/73 Pulse 101 Temp 36.6 ?C (97.9 ?F) Resp 20 Wt 74 kg (163 lb 2.3 oz) SpO2 96% Physical Exam Vitals and nursing note reviewed. Constitutional: Appearance: Normal appearance. He is normal weight. HENT: Head: Normocephalic and atraumatic. Right Ear: External ear normal. Left Ear: External ear normal. Nose: Nose normal. Mouth/Throat: Mouth: Mucous membranes are moist. Pharynx: Oropharynx is clear. Eyes: Extraocular Movements: Extraocular movements intact. Conjunctiva/sclera: Conjunctivae normal. Pupils: Pupils are equal, round, and reactive to light. Cardiovascular: Rate and Rhythm: Normal rate. Pulses: Normal pulses. Heart sounds: Normal heart sounds. Pulmonary: Effort: Pulmonary effort is normal. Breath sounds: Normal breath sounds. Abdominal: General: Abdomen is flat. Palpations: Abdomen is soft. Genitourinary: Penis: Normal. Testes: Normal. Musculoskeletal: Cervical back: Normal range of motion and neck supple. Skin: General: Skin is warm and dry. Capillary Refill: Capillary refill takes less than 2 seconds. Neurological: General: No focal deficit present. Mental Status: He is alert and oriented to person, place, and time. Psychiatric: Mood and Affect: Mood normal. Behavior: Behavior normal. Thought Content: Thought content normal. Judgment: Judgment normal. Assessment and Plan Physical exam findings as noted above. Gonorrhea/chlamydia/trichomonas NAAT was ordered and the patient was advised that results will be available within the next 24 to 48 hours. Given the patient's confirmed exposure to trichomonas, he was provided with a prescription for metronidazole 500 mg. Patient was advised that he will be contacted with any positive results and any additional medication will be prescribed at that time. Patient was advised that he if he continues to experience worsening testicular pain he will need to report to an emergency department for further evaluation and possible ultrasound. Patient verbalizes good understanding of the above instructions. CLINICAL IMPRESSION: Exposure to Trichomonas ASSESSMENT/PLAN: 1. Screening for STD (sexually transmitted disease) - ICD9: V74.5, ICD10: Z11.3 (primary diagnosis) - METRONIDAZOLE 500 MG TABLET 2. Urinary frequency - ICD9: 788.41, ICD10: R35.0 - GONORRHEA/CHLAMYDIA NAAT - TRICHOMONAS VAGINALIS NAAT 3. Exposure to trichomonas - ICD9: V01.6, ICD10: Z20.2 MDM Amount and/or Complexity of Data Reviewed Clinical lab tests: ordered and reviewed Risk of Complications, Morbidity, and/or Mortality Presenting problems: low Diagnostic procedures: low Management options: low Juan Pablo Roblero PA-C [facility] 02-24-2025 History of Present illness Narrative This note was created using [employer]. Subjective Eriberto Sevilla is a 34 year old male. Patient is a 34-year-old male who complains of testicular pain that he has been experiencing for the past day. Patient reports no dysuria, hematuria, urethral discharge, rash or lesions to the skin of his genitalia. Patient explains that his partner did test positive for trichomonas yesterday. Review of Systems Genitourinary: Positive for testicular pain. Exposure to Trichomonas All other systems reviewed and are negative. Objective BP 113/73 Pulse 101 Temp 36.6 C (97.9 F) Resp 20 Wt 74 kg (163 lb 2.3 oz) SpO2 96% Physical Exam Vitals and nursing note reviewed. Constitutional: Appearance: Normal appearance. He is normal weight. HENT: Head: Normocephalic and atraumatic. Right Ear: External ear normal. Left Ear: External ear normal. Nose: Nose normal. Mouth/Throat: Mouth: Mucous membranes are moist. Pharynx: Oropharynx is clear. Eyes: Extraocular Movements: Extraocular movements intact. Conjunctiva/sclera: Conjunctivae normal. Pupils: Pupils are equal, round, and reactive to light. Cardiovascular: Rate and Rhythm: Normal rate. Pulses: Normal pulses. Heart sounds: Normal heart sounds. Pulmonary: Effort: Pulmonary effort is normal. Breath sounds: Normal breath sounds. Abdominal: General: Abdomen is flat. Palpations: Abdomen is soft. Genitourinary: Penis: Normal. Testes: Normal. Musculoskeletal: Cervical back: Normal range of motion and neck supple. Skin: General: Skin is warm and dry. Capillary Refill: Capillary refill takes less than 2 seconds. Neurological: General: No focal deficit present. Mental Status: He is alert and oriented to person, place, and time. Psychiatric: Mood and Affect: Mood normal. Behavior: Behavior normal. Thought Content: Thought content normal. Judgment: Judgment normal. Assessment and Plan Physical exam findings as noted above. Gonorrhea/chlamydia/trichomonas NAAT was ordered and the patient was advised that results will be available within the next 24 to 48 hours. Given the patient's confirmed exposure to trichomonas, he was provided with a prescription for metronidazole 500 mg. Patient was advised that he will be contacted with any positive results and any additional medication will be prescribed at that time. Patient was advised that he if he continues to experience worsening testicular pain he will need to report to an emergency department for further evaluation and possible ultrasound. Patient verbalizes good understanding of the above instructions. CLINICAL IMPRESSION: Exposure to Trichomonas ASSESSMENT/PLAN: 1. Screening for STD (sexually transmitted disease) - ICD9: V74.5, ICD10: Z11.3 (primary diagnosis) - METRONIDAZOLE 500 MG TABLET 2. Urinary frequency - ICD9: 788.41, ICD10: R35.0 - GONORRHEA/CHLAMYDIA NAAT - TRICHOMONAS VAGINALIS NAAT 3. Exposure to trichomonas - ICD9: V01.6, ICD10: Z20.2 MDM Amount and/or Complexity of Data Reviewed Clinical lab tests: ordered and reviewed Risk of Complications, Morbidity, and/or Mortality Presenting problems: low Diagnostic procedures: low Management options: low Juan Pablo Roblero PA-C documented in this encounter [facility] 03-08-2024 History of Present illness Narrative Subjective: Patient: Eriberto Sevilla is a 33 y.o. male Patient presents to urgent care today with concerns for right-sided dental pain. Patient states pain has been ongoing for 1 week and has started to worsen over the past 2 to 3 days. Patient denies any difficulties eating, drinking, chewing, or swallowing. Patient declines any chills, fatigue, fever, ear pain, sinus pain or pressure, sore throat, shortness of breath, chest pain, nausea, vomiting, diarrhea. Patient has been utilizing ibuprofen at home for pain that has helped. Patient states he gets frequent dental infections since he was a child. Patient does not have a current dentist. Patient has not been to the dentist in a few years. Patient is able to speak in full complete sentences today in office and manage secretions appropriately. Patient is not in acute distress. Review of Systems Constitutional: Negative for chills, fatigue and fever. HENT: Positive for dental problem. Negative for congestion, ear discharge, ear pain, rhinorrhea, sinus pressure, sinus pain, sore throat and trouble swallowing. Respiratory: Negative for cough, chest tightness, shortness of breath and wheezing. Cardiovascular: Negative for chest pain and palpitations. Gastrointestinal: Negative for diarrhea, nausea and vomiting. Neurological: Negative for dizziness, syncope, weakness, light-headedness and headaches. No Known Allergies Current Outpatient Medications on File Prior to Visit Medication Sig Dispense Refill buprenorphine-naloxone (Suboxone) 2-0.5 MG per sublingual film DISSOLVE 1 FILM UNDER TONGUE TWICE A DAY No current facility-administered medications on file prior to visit. Past Medical History: Diagnosis Date Methamphetamine abuse ([facility]) ([facility]) Social History Tobacco Use Smoking status: Unknown Smokeless tobacco: Not on file Substance Use Topics Alcohol use: Yes Objective: BP 122/74 (BP Location: Left arm, Patient Position: Sitting) Pulse 79 Temp 36.4 C (97.6 F) Wt 185 lb (83.9 kg) SpO2 97% BMI 23.12 kg/m Physical Exam Vitals and nursing note reviewed. Constitutional: General: He is awake. He is not in acute distress. Appearance: Normal appearance. He is normal weight. He is not ill-appearing or toxic-appearing. HENT: Right Ear: Tympanic membrane, ear canal and external ear normal. Left Ear: Tympanic membrane, ear canal and external ear normal. Nose: Nose normal. Mouth/Throat: Mouth: Mucous membranes are moist. Dentition: Does not have dentures. Dental tenderness and gingival swelling present. No dental abscesses. Pharynx: Oropharynx is clear. No oropharyngeal exudate or posterior oropharyngeal erythema. Comments: No dental abscess noted. Patient has multiple missing teeth upon examination. Right upper and lower gums are erythematous and edematous. No purulent drainage noted. Patient does have tenderness to deep palpation of gums. Swelling noted on the right upper side. Cardiovascular: Rate and Rhythm: Regular rhythm. Tachycardia present. Pulmonary: Effort: Pulmonary effort is normal. Breath sounds: Normal breath sounds. Musculoskeletal: General: Normal range of motion. Skin: General: Skin is warm and dry. Neurological: General: No focal deficit present. Mental Status: He is alert and oriented to person, place, and time. Mental status is at baseline. Psychiatric: Mood and Affect: Mood normal. Behavior: Behavior normal. Behavior is cooperative. Thought Content: Thought content normal. Judgment: Judgment normal. Assessment 1. Dental infection Plan Diagnoses and all orders for this visit: Dental infection - amoxicillin-clavulanate (Augmentin) 875-125 MG tablet; Take 1 tablet by mouth 2 times daily for 10 days. - methylPREDNISolone (Medrol Dospak) 4 MG tablets; Follow schedule on package instructions - Ambulatory referral to Dentistry; Future - chlorhexidine (Peridex) 0.12 % solution; Use 15 mL in the mouth or throat 2 times daily for 14 days. Swish and spit Due to patient symptoms and clinical evaluation the above medications were prescribed. Educated patient on medications prescribed today in office and education provided in AVS. Recommended patient call dentist tomorrow to get an appointment established. Educated patient to continue to utilize Tylenol at home as needed for dental pain. Educated patient to avoid any NSAID use with steroid use. Educated patient on red flag symptoms that would warrant ER visit including but not limited to fevers, chills, nausea, vomiting, diarrhea, increased pain with inability to chew. Patient understands and agreeable to treatment plan at this time. Karely Thurman NP 03/08/24 9:34 AM If symptoms do not improve, worsen, or new symptoms develop, see PCP for further evaluation. documented in this encounter [facility] 07-26-2022 History of Present illness Narrative [facility] Respiratory Care Department Progress Note As part of the Respiratory Assessment Program (RAP), the following Respiratory Therapist evaluation has been completed, including a chart review and clinical/physical assessment. Respiratory Therapist RAP Evaluation Guideline Points 0 1 2 3 4 Points Strongly Consider History Factor No Pulmonary conditions Stable Pulmonary condition(s) Surgery or Intervention that may impact Pulmonary system (at risk) Surgery or Intervention that is impacting Pulmonary system Active Exacerbation of Pulmonary Condition 0 Respiratory Pattern Regular, RR= 12-18 [place] or Increased RR= 19-24 Irregular, or RR= 25-30 SOB, talk in short sentences, or RR= 31-35 Severe SOB, accessory muscle use, one word answers, or RR>35 0 Aerosol Med(s), High Flow O2 Breath Sounds Clear Diminished in 1 lobe Diminished in ? 2 lobes Adventitious breath sounds Coarse crackles, Wheezes, or Diminished in >2 lobes 4 Aerosol Med(s), Bronchial Hygiene, Hyperinflation Cough & Sputum Strong cough, no secretion retention or production Weak cough, no secretion retention or production Weak cough, w/ production (less often than Q2hr), or secretion retention No cough, w/ secretion retention or production (less often than Q2hr) Significant secretion production (more often than Q2hr) or mucus plug 0 Aerosol Med(s), Bronchial Hygiene, Hyperinflation Level of Activity Ambulatory Ambulatory with Assist Up in chair or edge of bed (dangle) Non-ambulatory, bedridden with active ROM Completely paralyzed or without active ROM 1 Triage 5 0-2 Triage 4 3-5 Triage 3 6-10 Triage 2 11-14 Triage 1 ?15 Total 4 Triage Score = 4 TRIAGE SCORING - SUGGESTED FREQUENCIES Aerosol Therapy Bronchial Hygiene Hyperinflation Triage Score Q4h & PRN 1 Q4hWA (QID) & PRN 2 TID & PRN 3 BID & PRN 4 PRN 5 Therapy(s) Indicated Yes/No Aerosol Medication no Hyperinflation no Bronchial Hygiene no High Flow Oxygen no RT to enter/modify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
--- NOTE | 2025-07-01 23:01 | EX.ED.SAOD ---
HPI History of Present Illness Chief Complaint: Substance Abuse Informant: patient Narrative Narrative: Patient is a 34-year-old male with a history of substance abuse presenting for evaluation after a positive drug screen for fentanyl. - Patient is currently enrolled in an intensive outpatient program (IOP) for substance abuse, which he started two weeks ago. - Reports a recent drug screen taken on Friday (4 days ago) returned positive for fentanyl; denies intentional fentanyl use, attributing the result to possible contamination in methamphetamine obtained from a supplier known to handle both substances. Due to the abnormal test, he states that the IOP program sent him here to the ER for detox. - Last methamphetamine use was yesterday; prior to starting IOP, he was a heavy user, consuming approximately a gram per day. - Since beginning IOP and being on probation, he has reduced usage, sometimes abstaining for a day or two, but continues to use intermittently to manage symptoms of restlessness and feeling like he needs to crawl out of my skin. - Has been taking daily drug tests for two weeks, with the fentanyl-positive result being the first of its kind. - Denies any current withdrawal symptoms, including insomnia, emesis, abdominal cramping, diarrhea, or tremors. - Has a history of heroin use and withdrawal, stating, I'm not going back through that. [facility] Medical History Substance abuse Home Medications ?Medication ?Instructions ?Recorded ?Last Taken ?Type escitalopram oxalate 10 mg tablet 10 mg PO DAILY 07/01/25 Unknown History hydroxyzine HCl 25 mg tablet 25 mg PO 4X/DAY PRN PRN anxiety 07/01/25 Unknown History ropinirole 2 mg tablet 2 mg PO DAILY PRN restless legs 07/01/25 Unknown History Allergy/AdvReac Type Severity Reaction Status Date / Time No Known Allergies Allergy Verified 07/01/25 22:11 Social History Smoking Status: Current every day smoker tobacco type: cigarettes substance use type: does not use ROS ROS ED Constitutional Constitutional ED: Denies chills or fever(s) Eyes Eyes: Denies change in vision or diplopia ENT ENT ED: Denies rhinorrhea or sore throat Cardiovascular Cardiovascular: Denies chest pain or palpitations Respiratory/Chest Respiratory/Chest: Denies cough or dyspnea Gastrointestinal Gastrointestinal: Denies abdominal pain, diarrhea, nausea or vomiting Genitourinary Genitourinary ED: Denies dysuria or hematuria Musculoskeletal Musculoskeletal: Denies back pain or neck pain Integumentary Denies abscess or rash Neurologic Neurologic: Denies headache(s), paresthesias or weakness Psychiatric Psychiatric: Denies anxiety or suicidal thoughts EXAM Physical Exam Const Vital Signs: 07/01/25 22:11 07/01/25 23:07 Temperature 98.6 F 98.6 F Temperature Source Temporal Pulse Rate 111 H 112 H Respiratory Rate 20 H 18 Blood Pressure 141/78 H 126/70 H Blood Pressure Mean 99 88 Pulse Ox 100 98 Oxygen Delivery Method Room Air Positive well nourished and well developed General Appearance ED: well developed and NAD HEENT Reports moist mucous membranes normocephalic and atraumatic Eyes PERRL and EOMs intact bilaterally Neck full ROM and supple Resp normal respiratory effort and clear to auscultation bilaterally Cardio regular rate, regular rhythm and no murmurs GI non-tender and non-distended Auscultation: normoactive bowel sounds Palpation: soft Back/Spine no CVA tenderness General Back: other FROM Extremity normal to inspection General Extremety ED: Negative for edema, pulses abnormal or tenderness General Extremity: Negative for edema or pulses abnormal Neuro oriented x3, CN's II-XII intact bilaterally and no sensory deficits noted Sensorium / Orientation: awake and alert Motor Exam: strength 5/5 throughout Psych mental status grossly normal and thought process normal Psych Narrative: Insightful reasonable, cooperative and pleasant Skin no rashes or lesions noted and no wounds MDM MDM MDM Narrative Medical decision making narrative: Patient is insightful, not suicidal, and has a benign neurologic exam, including normal [id number] and [id number] coordination bilaterally. He has [inaudible], with normal vital signs. He shows no withdrawal symptoms or objective findings, no piloerection, no dilated pupils, and no abdominal tenderness. I do not feel he is in any type of withdrawal or in need of inpatient detox or medications at this time. He has been evaluated, and his medical screening exam is benign. Since his drug screen was three or four days ago and he is not intentionally using anything regularly, I feel he can continue with his IOP program. There is no indication for inpatient detox at this time. Discharge Plan Triage Chief Complaint: Substance Abuse ED Provider: Dave De Santiago Dx/Rx/DC Orders Clinical Impression: Polysubstance abuse Instructions: Substance Abuse Rehab Program Prescriptions: No Action hydroxyzine HCl 25 mg tablet 25 mg PO 4X/DAY PRN PRN (Reason: anxiety) escitalopram oxalate 10 mg tablet 10 mg PO DAILY ropinirole 2 mg tablet 2 mg PO DAILY PRN (Reason: restless legs) Primary Care Provider: Care Physician,Coco Primary Referrals: [facility] [Non-Staff, None] Activity Restrictions/Additional Instructions: Patient is cleared from a withdrawal standpoint and does not meet any criteria for admission to inpatient detox at this time Print Language: Polish Disposition Disposition: Home, Self Care Discharge Date/Time: 07/01/25 23:08
[2025-07-01 23:07] VITALS: BP 126/70; PULSE 112; RESP 18; TEMP 37; O2SAT 98
== END 2025-07-01 23:08 | disposition home or self-care (01) ==
PROVIDERS: Emergency Provider Emergency Medicine; Visit Provider Emergency Medicine
DX: F19.10 Other psychoactive substance abuse, uncomplicated (principal); F15.90 Other stimulant use, unspecified, uncomplicated; F17.210 Nicotine dependence, cigarettes, uncomplicated
CPT/HCPCS: 99282